=== PATIENT | male | born 2000 | race Caucasian/White ===

== ENCOUNTER 2021-11-04 04:42 | Inpatient (IN) ==
[2021-11-04] MEDS ORDERED: Nicotine 14 MG PATCH.TD24 TD STA (11:20)
[2021-11-04 23:43] LABS: Influenza A PCR Negative (Negative); Influenza B PCR Negative (Negative); Resp. Syncytial Virus PCR Negative (Negative)
[2021-11-04 23:45] LABS: SARS-CoV-2 by PCR (In House) Negative (Negative)
[2021-11-05] MEDS ORDERED: QUEtiapine Fumarate 25 MG TABLET PO PRN (00:49)
[2021-11-05] MEDS ORDERED: *HR* LORazepam 1 MG TABLET PO PRN (00:49)
[2021-11-05] MEDS ORDERED: haloperidoL 5 MG TABLET PO PRN (00:49)
[2021-11-05] MEDS ORDERED: Haloperidol Lactate 5 MG/ML VIAL IM PRN (00:49)
[2021-11-05] MEDS ORDERED: Acetaminophen 325 MG TABLET PO PRN (00:49)
[2021-11-05] MEDS ORDERED: hydrOXYzine pamoate 25 MG CAPSULE PO PRN (00:49)
[2021-11-05] MEDS ORDERED: *HR* LORazepam 2 MG/ML VIAL IM PRN (00:49)
[2021-11-05] MEDS ORDERED: Mag Hydrox/Al Hydrox/Simeth 30 ML UDC PO PRN (12:56)
[2021-11-05] MEDS ORDERED: MOM Conc 10 ML UD.LIQ PO PRN (12:56)
[2021-11-05] MEDS: Thiamine (B-1) 100 MG TABLET PO SCH (14:46)
[2021-11-05] MEDS: Folic Acid 1 MG TABLET PO SCH (14:46)
[2021-11-05] MEDS: Nicotine 2 MG GUM BC SCH ×3 (14:50→20:43)
[2021-11-05] MEDS ORDERED: ARIPiprazole 2 MG TABLET PO SCH (21:00)
[2021-11-05] MEDS: Nicotine 2 MG GUM BC PRN (21:17)
[2021-11-06] MEDS: Folic Acid 1 MG TABLET PO SCH (08:20)
[2021-11-06] MEDS: Thiamine (B-1) 100 MG TABLET PO SCH (08:21)
[2021-11-06] MEDS: Nicotine 2 MG GUM BC PRN ×2 (09:45→19:08)
[2021-11-06] MEDS: QUEtiapine Fumarate 100 MG TABLET PO PRN (20:54)
[2021-11-06] MEDS ORDERED: ARIPiprazole 5 MG TABLET PO SCH (21:00)
[2021-11-07] MEDS: Thiamine (B-1) 100 MG TABLET PO SCH (08:32)
[2021-11-07] MEDS: Folic Acid 1 MG TABLET PO SCH (08:32)
[2021-11-07] MEDS: Nicotine 2 MG GUM BC PRN ×3 (08:49→18:00)
[2021-11-07] MEDS: QUEtiapine Fumarate 100 MG TABLET PO PRN (20:31)
[2021-11-07] MEDS: ARIPiprazole 5 MG TABLET PO SCH (20:31)
[2021-11-08] MEDS: Folic Acid 1 MG TABLET PO SCH (08:53)
[2021-11-08] MEDS: Thiamine (B-1) 100 MG TABLET PO SCH (08:53)
[2021-11-08] MEDS: Nicotine 2 MG GUM BC PRN ×2 (08:53→12:57)
[2021-11-08] MEDS: Sennosides/Docusate Sodium TABLET PO SCH (14:18)
[2021-11-08] MEDS: ARIPiprazole 5 MG TABLET PO SCH (19:59)
[2021-11-08] MEDS: QUEtiapine Fumarate 100 MG TABLET PO PRN (19:59)
[2021-11-09] MEDS: Thiamine (B-1) 100 MG TABLET PO SCH (08:14)
[2021-11-09] MEDS: Sennosides/Docusate Sodium TABLET PO SCH (08:15)
[2021-11-09] MEDS: Folic Acid 1 MG TABLET PO SCH (08:15)
[2021-11-09 08:19] VITALS: BP 114/81; PULSE 84; TEMP 98; O2SAT 96
[2021-11-09] MEDS: Nicotine 2 MG GUM BC PRN (09:27)
== END 2021-11-09 14:05 | disposition home or self-care (01) | DRG 751 ==
LOC: EMEROOARM 04:42 → 1ANU 11-05 00:47
PROVIDERS: ADMIT Psychiatry & Neurology Forensic Psychiatry; ATTEND Psychiatry & Neurology Forensic Psychiatry